=== PATIENT | female | born 1975 | race African-American/Black ===

== ENCOUNTER 2016-05-25 18:23 | Outpatient (CLI) | payer MEDICAID ==
[2016-05-25 19:09] LABS: APPEARANCE,URINE CLOUDY; BILIRUBIN,URINE NEGATIVE (NEGATIVE); GLUCOSE, URINE NEGATIVE (NEGATIVE); KETONES,URINE TRACE mg/dL (NEGATIVE); LEUKOCYTE ESTERASE,URINE NEGATIVE (NEGATIVE); NITRITE,URINE NEGATIVE (NEGATIVE); PROTEIN,URINE NEGATIVE (NEGATIVE); URINE SPECIFIC GRAVITY 1.014; UROBILINOGEN,URINE NEGATIVE mg/dL (<2.0)
[2016-05-25 19:36] LABS: URINE BARBITURATES SCREEN NEGATIVE; URINE METHADONE SCREEN NEGATIVE; URINE PHENCYCLIDINE SCREEN NEGATIVE
--- NOTE | 2016-05-25 20:01 | L&D Flow Sheet ---
LD Flowsheet Datetime Report Generated by CPN: 05/25/2016 20:00 Datetime: 05/25/2016 19:56 NBP Sys/Leigha/Mean (mmHg): 136 (QS system process) : 73 (QS system process) : 98 (QS system process) Pulse: 95 (QS system process) Communication LaborFlag: Antepartum (QS system process) Datetime: 05/25/2016 19:26 NBP Sys/Leigha/Mean (mmHg): 142 (QS system process) : 81 (QS system process) : 104 (QS system process) Pulse: 102 (QS system process) Respirations: 14 (Elayne Ledgerwood, RN) Communication LaborFlag: Antepartum (QS system process) Datetime: 05/25/2016 19:20 Pain Pain Scale: 0 (Elayne Ledgerwood, RN) Vaginal Exam Vaginal Bleeding: None (Elayne Ledgerwood, RN) Maternal Assessment Level of Consciousness: Fully Conscious (Elayne Ledgerwood, RN) DTR's/Clonus: DTRs 2+; No Clonus (Elayne Ledgerwood, RN) Headache: Denies (Elayne Ledgerwood, RN) Breath Sounds, Left: Clear and Equal (Elayne Ledgerwood, RN) Breath Sounds, Right: Clear and Equal (Elayne Ledgerwood, RN) Nausea/Vomiting: Denies (Elayne Ledgerwood, RN) RUQ Epigastric Pain: Denies (Elayne Ledgerwood, RN) Teaching Instructional Method: Demo; Verbal; Patient Instructed (Elayne Lopez RN) Plan of Care: Plan of Care Discussed (Elayne Lopez RN) Unit Routine: [place] to Room; Call Cardona; Bed; Handwashing; Monitoring; Safety/Fall Risk Prevention; Bathroom Privileges (Elayne Lopez RN) Communication LaborFlag: Antepartum (QS system process) Datetime: 05/25/2016 18:56 NBP Sys/Leigha/Mean (mmHg): 128 (QS system process) : 77 (QS system process) : 97 (QS system process) Pulse: 100 (QS system process) Communication LaborFlag: Antepartum (QS system process) Datetime: 05/25/2016 18:50 Vital Signs Stage of : Antepartum (Elayne Ledgerwood, RN)
--- NOTE | 2016-05-26 04:47 | L&D General Admission ---
General Admit Datetime Report Generated by CPN: 05/26/2016 04:45 INFORMATION Patient Age: 41 (05/25/2016 18:23:QS system process) EDC: 08/29/2016 00:00 (05/25/2016 18:44:JUDITH Becerra) : 5 (05/25/2016 18:44:JUDITH Becerra) Para: 2 (05/25/2016 20:39:Elayne Lopez RN) Para: 2 (05/25/2016 18:44:JUDITH Becerra) Term: 2 (05/25/2016 18:44:JUDITH Becerra) : 0 (05/25/2016 18:44:JUDITH Becerra) Spontaneous Abortions: 1 (05/25/2016 18:44:JUDITH Becerra) Induced Abortions: 1 (05/25/2016 18:44:JUDITH Becerra) Livin (05/25/2016 18:44:JUDITH Becerra) Cesareans: 0 (05/25/2016 18:44:JUDITH Becerra) VBACs: 0 (05/25/2016 18:44:[facility], [facility]) Ectopic: 0 (05/25/2016 18:44:[facility], [facility]) Multiple Births: 0 (05/25/2016 18:44:[facility], [facility]) Baby, Number in Womb: 1 (05/25/2016 20:39:Elayne Lopez RN) Baby, Number in Womb: 1 (05/25/2016 18:44:[facility]) CARE Primary Supply Chain Tech: [facility] (05/25/2016 18:44:[facility], [facility]) Adequate Care: Yes (05/25/2016 18:44:[facility], [facility]) Prepregnancy Weight (lb): 264 (05/25/2016 18:44:[facility]) Prepregnancy Weight (kg): 120.0 (05/25/2016 18:44:QS system process) Height (in): 68 (05/25/2016 18:50:QS system process) ALLERGIES Medication Allergy: No (05/25/2016 18:44:Keshia Camp, RNC) Medication Allergies: No Known Allergies (05/25/2016) (05/25/2016 18:44:QS system process) Latex Allergy: No Latex Allergies (05/25/2016 18:44:Keshia Camp, RNC) COMMUNICATION Primary Language: Sami (05/25/2016 18:44:Keshia Camp, RNC) Medical Tx Preferred Language: Sami (05/25/2016 18:44:Keshia Camp, RNC) Communication Barrier(s): None (05/25/2016 18:44:Keshia Camp, RNC) DEMOGRAPHICS Address: [address] [place] [id number] (05/25/2016 18:23:QS system process) Zipcode: [address] (05/25/2016 18:23:QS system process) Home (05/25/2016 18:23:QS system process) Work (05/25/2016 18:23:QS system process) SSN: [id number] (05/25/2016 18:23:QS system process) Next of Kin Name: SUDHAKAR HANSEN (05/25/2016 18:23:QS system process) Next of Kin (05/25/2016 18:23:QS system process) Next of Kin Relationship: SPO (05/25/2016 18:23:QS system process) Date of : 1975 (05/25/2016 18:23:QS system process) Marital Status: (05/25/2016 18:23:QS system process) Sex: Female (05/25/2016 18:23:QS system process) Race: (05/25/2016 18:23:QS system process) Ethnicity: Non- or (05/25/2016 18:23:QS system process) Restorationist: Other (05/25/2016 18:23:QS system process) DRUG AND ALCOHOL USE Alcohol: No (05/25/2016 18:44:Elayne Lopez RN) Cigarettes: Never Smoker. [id number] (05/25/2016 18:44:Elayne Lopez RN) Marijuana: No (05/25/2016 18:44:Elayne Lopez RN) Cocaine: No (05/25/2016 18:44:Elayne Lopez RN) Other Illicit Drugs: No (05/25/2016 18:44:Elayne Lopez RN) VACCINE HISTORY Influenza Vaccine: No (05/25/2016 18:44:Elayne Lopez RN) Feeding Preference: Breast (05/25/2016 18:44:Elayne Lopez RN) Plans for Labor and Delivery: Other, Specify (05/25/2016 18:44:Elayne Lopez RN) Other Labor and Delivery Plans: Delivery at [place] (05/25/2016 18:44:Elayne Lopez RN) Support Person: Sudhakar (05/25/2016 18:44:Elayne Lopez RN) Support Person Relationship: (05/25/2016 18:44:Elayne Lopez RN) Cultural/Spritual Practice: No (05/25/2016 18:44:Elayne Lopez RN) Spir/Cult Dietary Needs: No (05/25/2016 18:44:Elayne Lopez RN) LIVING SITUATION/DISCHARGE PLAN Living Arrangements: House (05/25/2016 18:44:Elayne Lopez RN) Adequate Access to:: Electric; Heat; Refrigeration; Plumbing/Running water; Phone; Transportation (05/25/2016 18:44:Elayne Lopez RN) WIC Program: Yes (05/25/2016 18:44:Elayne Lopez RN) Currently Using Commun Resources: Yes (05/25/2016 18:44:Elayne Lopez RN) Specify Current Resource Used: WIC (05/25/2016 18:44:Elayne Lopez RN) Outside Agency/Terminal Block Assembler: Yes (05/25/2016 18:44:Elayne Lopez RN) Specify Agency/ Terminal Block Assembler: ambulatory care coordinator from [facility] (05/25/2016 18:44:Elayne Lopez RN) Adoption Requested: No (05/25/2016 18:44:Elayne Lopez RN) Pt Contact w/ Post : N/A (05/25/2016 18:44:Elayne Lopez RN) LABS Blood Type: A Positive (05/25/2016 18:44:JUDITH Becerra) Antibody Screen: negative (05/25/2016 18:44:JUDITH Becerra) Gonorrhea: Negative (05/25/2016 18:44:JUDITH Becerra) Chlamydia: Negative (05/25/2016 18:44:JUDITH Becerra) RPR/VDRL: Nonreactive (05/25/2016 18:44:JUDITH Becerra) HIV Results: negative (05/25/2016 18:44:JUDITH Becerra) Hepatitis B: Negative (05/25/2016 18:44:JUDITH Becerra) Rubella: Immune (05/25/2016 18:44:Keshia Agee [facility]) OB/PREVIOUS HISTORY Previous Procedures: NST (05/25/2016 18:44:Elayne Lopez RN) Current Procedures: Ultrasound; NST (05/25/2016 18:44:Elayne Lopez RN) History of Previous : No (05/25/2016 18:44:Elayne Lopez RN) History of Gestational Diabetes: No (05/25/2016 18:44:Elayne Lopez RN) History of PIH: No (05/25/2016 18:44:Elayne Lopez RN) History of Incompetent Cervix: No (05/25/2016 18:44:Elayne Lopez RN) History of Placenta Previa/Abrup: No (05/25/2016 18:44:Elayne Lopez RN) History of Macrosomia: No (05/25/2016 18:44:Elayne Lopez RN) History of IUGR: No (05/25/2016 18:44:Elayne Lopez RN) History of Hemorrhage: No (05/25/2016 18:44:Elayne Lopez RN) History of Loss/Stillborn: No (05/25/2016 18:44:Elayne Lopez RN) History of : No (05/25/2016 18:44:Elayne Lopez RN) History of D (Rh) Sensitization: No (05/25/2016 18:44:Elayne Lopez RN) History Recurrent Loss/Stillborn: No (05/25/2016 18:44:Elayne Lopez RN) History Depression/PP Depression: No (05/25/2016 18:44:Elayne Lopez RN) History of Uterine Anomaly/SWAPNA: No (05/25/2016 18:44:Elayne Lopez RN) History of Infertility: No (05/25/2016 18:44:Elayne Lopez RN) History of ART Treatment: No (05/25/2016 18:44:Elayne Lopez RN) History of SWAPNA: No (05/25/2016 18:44:Elayne Lopez RN) Comments Obstetrical History: present- baby has TOF (05/25/2016 18:44:Elayne Lopez RN) MEDICAL HISTORY Med Hx Diabetes: No (05/25/2016 18:44:Elayne Lopez RN) Med Hx Hypertension: Yes (05/25/2016 18:44:Elayne Lopez RN) Med Hx Heart Disease: No (05/25/2016 18:44:Elayne Lopez RN) Med Hx Autoimmune Disorder: No (05/25/2016 18:44:Elayne Lopez RN) Med Hx Kidney Disease/UTI: No (05/25/2016 18:44:Elayne Lopez RN) Med Hx Neurologic/Epilepsy: No (05/25/2016 18:44:Elayne Lopez RN) Med Hx Psychiatric Disorders: No (05/25/2016 18:44:Elayne Lopez RN) Med Hx Hepatitis/Liver Disease: No (05/25/2016 18:44:Elayne Lopez RN) Med Hx Varicosities/Phlebitis: No (05/25/2016 18:44:Elayne Lopez RN) Med Hx Thyroid Dysfunction: No (05/25/2016 18:44:Elayne Lopez RN) Med Hx Trauma/Violence: No (05/25/2016 18:44:Elayne Lopez RN) Med Hx Blood Transfusion: No (05/25/2016 18:44:Elayne Lopez RN) Med Hx Pulmonary (Asthma,TB): No (05/25/2016 18:44:Elayne Lopez RN) Med Hx Breast: No (05/25/2016 18:44:Elayne Lopez RN) Med Hx PROCESSING ASSOCIATE Surgery: No (05/25/2016 18:44:Elayne Lopez RN) Med Hx Hospitalization/Surgery: No (05/25/2016 18:44:Elayne Lopez RN) Med Hx Anesthetic Complications: No (05/25/2016 18:44:Elayne Lopez RN) Med Hx Abnormal Pap Smear: No (05/25/2016 18:44:Elayne Lopez RN) Other Medical Diseases: No (05/25/2016 18:44:Elayne Lopez RN) Med Hx Significant Family Hx: No (05/25/2016 18:44:Elayne Lopez RN) INFECTIOUS HISTORY Inf Hx Gonorrhea: No (05/25/2016 18:44:Elayne Lopez RN) Inf Hx Chlamydia: No (05/25/2016 18:44:Elayne Lopez RN) Inf Hx Syphilis: No (05/25/2016 18:44:Elayne Lopez RN) Inf Hx HIV/AIDS: No (05/25/2016 18:44:Elayne Lopez RN) Inf Hx Human Papilloma Virus: No (05/25/2016 18:44:Elayne Lopez RN) Inf Hx Pt/Partner Genital Herpes: No (05/25/2016 18:44:Elayne Lopez RN) Inf Hx Tuberculosis/Exposure: No (05/25/2016 18:44:Elayne Lopez RN) Inf Hx Hepatitis B,C: No (05/25/2016 18:44:Elayne Lopez RN) Inf Hx Rash or Viral Illness: No (05/25/2016 18:44:Elayne Lopez RN) GENETIC HISTORY Gen Hx Age >=35 at MAKAYLA: No (05/25/2016 18:44:Elayne Lopez RN) Gen Hx Thalassemia: No (05/25/2016 18:44:Elayne Lopez RN) Gen Hx Congenital Heart Defect: No (05/25/2016 18:44:Elayne Lopez RN) Gen Hx Neural Tube Defect: No (05/25/2016 18:44:Elanye Lopez RN) Gen Hx Down's Syndrome: No (05/25/2016 18:44:Elayne Lopez RN) Gen Hx Eriberto-Sachs: No (05/25/2016 18:44:Elayne Lopez RN) Gen Hx Mick: No (05/25/2016 18:44:Elayne Lopez RN) Gen Hx Familial Dysautonomia: No (05/25/2016 18:44:Elayne Lopez RN) Gen Hx Sickle Cell Disease/Trait: No (05/25/2016 18:44:Elayne Lopez RN) Gen Hx Hemophilia/Blood Disorder: No (05/25/2016 18:44:Elayne Lopez RN) Gen Hx Muscular Dystrophy: No (05/25/2016 18:44:Elayne Lopez RN) Gen Hx Cystic Fibrosis: No (05/25/2016 18:44:Elayne Lopez RN) Gen Hx Huntingtons Chorea: No (05/25/2016 18:44:Elayne Lopez RN) Gen Hx Mental Retardation/Autism: No (05/25/2016 18:44:Elayne Lopez RN) Gen Hx Tested for Fragile X: No (05/25/2016 18:44:Elayne Lopez RN) Gen Hx Other Inher/Chromosomal: No (05/25/2016 18:44:Elayne Lopez RN) Gen Hx Maternal Metabolic DO: No (05/25/2016 18:44:Elayne Lopez RN) Gen Hx Pt Father or FOB Defect: No (05/25/2016 18:44:Elayne Lopez RN) Gen Hx Other Genetic History: No (05/25/2016 18:44:Elayne Lopez RN) Gen Hx Drugs/Meds since LMP: No (05/25/2016 18:44:Elayne Lopez RN)
--- NOTE | 2016-05-26 04:47 | L&D Current Admission ---
Current Admit Datetime Report Generated by CPN: 05/26/2016 04:45 ADMISSION INFORMATION Chief Complaint: abdominal pain (05/25/2016 19:20:Elayne Lopez RN)
--- NOTE | 2016-05-26 04:47 | Antepartum Discharge Summary ---
Antepartum DC Datetime Report Generated by CPN: 05/26/2016 04:45 DIET/ACTIVITY/RESTRICTIONS Diet: Regular (05/25/2016 20:39:Elayne Ledgerwood, RN) Activity: Normal Activity (05/25/2016 20:39:Elayne Ledgerwood, RN) TEACHING/INSTRUCTIONS/REFERRALS Instructions Given To: pt (05/25/2016 20:39:Elayne Ledgerwood, RN) Instructions Understood: Patient Verbalized Understanding; Support Person Verbalized Understanding (05/25/2016 20:39:Elayne Lopez RN) Referrals: None (05/25/2016 20:39:Elayne Lopez RN) Educational Materials- Other: Kick Count Round Ligament Pain (05/25/2016 20:39:Elayne Lopez RN) DISCHARGE INFORMATION Discharged AMA: No (05/25/2016 20:39:Elayne Lopez RN) Physician Notified of Disch AMA: Dr Lockett (05/25/2016 20:39:Elayne Lopez RN) Discharge Date/Time: 05/25/2016 20:32 (05/25/2016 20:39:Elayne Lopez RN) Discharged To: Home (05/25/2016 20:39:Elayne Lopez RN) Discharge Provider Name: Dr Lockett (05/25/2016 20:39:Elayne Lopez RN) Accompanied By: (05/25/2016 20:39:Elayne Lopez RN) Discharge Method: Ambulatory (05/25/2016 20:39:Elayne Lopez RN) Condition: Stable (05/25/2016 20:39:Elayne Lopez RN) FOLLOW UP INFORMATION Follow Up With: [facility] (05/25/2016 20:39:Elayne Lopez RN) Follow Up On: As Scheduled (05/25/2016 20:39:Elayne Lopez RN) Follow Up Phone Number: [facility] - (05/25/2016 20:39:Elayne Lopez RN)
--- NOTE | 2016-05-26 04:47 | L&D Flow Sheet ---
LD Flowsheet Datetime Report Generated by CPN: 05/26/2016 04:45 Datetime: 05/25/2016 20:30 Additional Nursing Comments: Pt is okay for discharge home. F/U as scheduled in office. Not in labor. (Suzy Lattibeaudeir, RN) Datetime: 05/25/2016 20:24 Patient Care Patient Care Comments: Monitors off (Elayne Lopez, RN) Datetime: 05/25/2016 20:22 Teaching Instructional Method: Demo; Verbal; Patient Instructed (Elaynechristy Pedersonwood, RN) Related: Hydration; Activity and Rest (Elayne Lopez, RN) Teaching Comments: Kick Counts, Round Ligament Pain (Elayne Lopez, RN) Datetime: 05/25/2016 20:11 Uterine Activity Monitor Mode: External; Palpation (Elayne Ledgerwood, RN) Frequency (min): none (Elayne Ledgerwood, RN) Contraction Comments: pt reports no feeling of contractions (Elayne Ledgerwood, RN) Assessment A Monitor Mode: External US (Elayne Ledgerwood, RN) FHR Baseline Rate : 140 (Elayne Ledgerwood, RN) FHR Baseline Changes: No Baseline Change (Elayne Ledgerwood, RN) Variability: Moderate 6-25 bpm (Elayne Ledgerwood, RN) Accelerations: 10X10 (Elayne Ledgerwood, RN) Decelerations: None (Elayne Ledgerwood, RN) Patient Care Patient Care Comments: Monitors off (Elayne Ledgerwood, RN) Datetime: 05/25/2016 19:56 NBP Sys/Leigha/Mean (mmHg): 136 (QS system process) : 73 (QS system process) : 98 (QS system process) Pulse: 95 (QS system process) LaborFlag: Antepartum (QS system process) Datetime: 05/25/2016 19:44 Communication Communication: Provider Orders Received (Elayne Bgabbie, RN) Communication Comments: Dr Lockett notified of pt's status, complaints, labs. D/C order received after obtaining 10 -15 minutes FHR strip. (Elayne Pedersonwood, RN) Datetime: 05/25/2016 19:26 NBP Sys/Leigha/Mean (mmHg): 142 (QS system process) : 81 (QS system process) : 104 (QS system process) Pulse: 102 (QS system process) Respirations: 14 (Elayne Lopez, RN) LaborFlag: Antepartum (QS system process) Datetime: 05/25/2016 19:20 Pain Pain Scale: 0 (Elayne Ledgerwood, RN) Vaginal Exam Vaginal Bleeding: None (Elayne Ledgerwood, RN) Maternal Assessment Level of Consciousness: Fully Conscious (Elayne Ledgerwood, RN) DTR's/Clonus: DTRs 2+; No Clonus (Elayne Ledgerwood, RN) Headache: Denies (Elayne Ledgerwood, RN) Breath Sounds, Left: Clear and Equal (Elayne Ledgerwood, RN) Breath Sounds, Right: Clear and Equal (Elayne Ledgerwood, RN) Nausea/Vomiting: Denies (Elayne Lopez RN) RUQ Epigastric Pain: Denies (Elayne Lopez RN) Teaching Instructional Method: Demo; Verbal; Patient Instructed (Elayne Lopez RN) Plan of Care: Plan of Care Discussed (Elayne Lopez RN) Unit Routine: [place] to Room; Call [place]ona; Bed; Handwashing; Monitoring; Safety/Fall Risk Prevention; Bathroom Privileges (Elayne Lopez RN) LaborFlag: Antepartum (QS system process) Datetime: 05/25/2016 19:10 Communication Comments: Report received from Charlotte Wilson RN (Elayne Lopez RN) Datetime: 05/25/2016 18:56 NBP Sys/Leigha/Mean (mmHg): 128 (QS system process) : 77 (QS system process) : 97 (QS system process) Pulse: 100 (QS system process) LaborFlag: Antepartum (QS system process) Datetime: 05/25/2016 18:50 Vital Signs Stage of : Antepartum ([facility], RN)
--- NOTE | 2016-05-26 04:47 | L&D Admission Assessment ---
LD ADM ASMT Datetime Report Generated by CPN: 05/26/2016 04:45 PATIENT ASSESSMENT Assessment Type: Admission Assessment (05/25/2016 19:20:Elayne Lopez, RN) WEIGHT Weight (lb): 286 (05/25/2016 18:50:QS system process) Weight (kg): 130.0 (05/25/2016 18:50:QS system process) Total Wt Gain (lb): 22 (05/25/2016 18:50:QS system process) Wt Gain (kg): 10.0 (05/25/2016 18:50:QS system process) PAIN Pain Scale: 0 (05/25/2016 19:20:Elayne Ledgerwood, RN) CONTRACTIONS Frequency (min): none (05/25/2016 20:11:Elayne Ledgerwood, RN) Contraction Comments: pt reports no feeling of contractions (05/25/2016 20:11:Elayne Ledgerwood, RN) NEURO Level of Consciousness: Fully Conscious (05/25/2016 19:20:Elayne Ledgerwood, RN) DTR's/Clonus: DTRs 2+; No Clonus (05/25/2016 19:20:Elayne Lopez RN) Headache: Denies (05/25/2016 19:20:Elayne Lopez RN) Dizziness: No (05/25/2016 19:20:Elayne Lopez RN) Blurred Vision: No (05/25/2016 19:20:Elayne Lopez RN) Extremity Numbness/Tingling : None (05/25/2016 19:20:Elayne Lopez RN) Extremity Movement: Full Range of Motion (05/25/2016 19:20:Elayne Lopez RN) CARDIOVASCULAR Nailbeds: [place] (05/25/2016 19:20:Elayne Lopez RN) Capillary Refill: Less than 3 Seconds (05/25/2016 19:20:Elayne Lopez RN) Lower Extremities Edema Degree: 1+ (05/25/2016 19:20:Elayne Lopez RN) Upper Extremities Edema: None (05/25/2016 19:20:Elayne Lopez RN) Upper Extremities Edema Degree: None (05/25/2016 19:20:Elayne Lopez RN) Facial Edema: None (05/25/2016 19:20:Elayne Lopez RN) Zaria's Sign Left Leg: Negative (05/25/2016 19:20:Elayne Lopez RN) Zaria's Sign Right Leg: Negative (05/25/2016 19:20:Elayne Lopez RN) RESPIRATORY Respiratory Effort: Unlabored; Regular Rhythm; Equal Expansion (05/25/2016 19:20:Elaynechristy Lopez, RN) Breath Sounds, Left: Clear and Equal (05/25/2016 19:20:Elaynechristy Fountaingerwood, RN) Breath Sounds, Right: Clear and Equal (05/25/2016 19:20:Elaynechristy Fountaingerabbie, RN) Cough Productivity: None (05/25/2016 19:20:Elaynechristy Fountaingerwood, RN) GASTROINTESTINAL Nausea/Vomiting: Denies (05/25/2016 19:20:Elayne Lopez RN) Bowel Sounds: Normoactive; All Quadrants (05/25/2016 19:20:Elayne Lopez, LILIAN) RUQ Epigastric Pain: Denies (05/25/2016 19:20:Elayne Lopez RN) Bowel Patterns: Soft, Formed Stool (05/25/2016 19:20:Elayne Lopez RN) Hemorrhoids: None (05/25/2016 19:20:Elayne Lopez RN) Diet Type: Regular diet (05/25/2016 19:20:Elayne Lopez RN) Last Meal: 05/25/2016 15:00 (05/25/2016 19:20:Elayne Jessica, RN) GENITOURINARY Bladder: Nondistended (05/25/2016 19:20:Elayne Lopez RN) Frequency of Urination: No (05/25/2016 19:20:Elayne Lopez RN) Urination Burning: No (05/25/2016 19:20:Elayne Lopez RN) CVA Tenderness: No (05/25/2016 19:20:Elayne Lopez RN) Vaginal Bleeding: None (05/25/2016 19:20:Elayne Lopez, RN) Vaginal Discharge Amount: None (05/25/2016 19:20:Elayne Lopez RN) Vaginal Discharge Color: N/A (05/25/2016 19:20:Elayne Lopez, RN) INTEGUMENTARY Skin Color: Normal for Race (05/25/2016 19:20:Elayne Lopez RN) Skin Temperature: Warm (05/25/2016 19:20:Elayne Lopez RN) Skin Moisture: Dry (05/25/2016 19:20:Elayne Lopez RN) RUTHANN SKIN ASSESSMENT Ruthann Scale Sensory Perception: No Impairment- Responds to verbal commands. Has no sensory deficit which would limit ability to feel or voice pain or discomfort (05/25/2016 19:20:Elayne Lopez RN) Ruthann Scale Moisture: Rarely Moist- Skin is usually dry. Linen only requires changing at routine intervals (05/25/2016 19:20:Elayne Lopez RN) Ruthann Scale Activity: Walks Frequently- Walks outside the room at least twice a day and inside room at least every 2 hours during the day. (05/25/2016 19:20:Elayne Lopez RN) Ruthann Scale Mobility: No Limitations- Makes major and frequent changes in position without assistance (05/25/2016 19:20:Elayne Lopez RN) Ruthann Scale Nutrition: Excellent- Eats most of every meal. Never refuses a meal. Usually eats a total of 4 or more servings of meat and dairy products. Occasionally eats between meals. Does not require supplementation (05/25/2016 19:20:Elayne Lopez RN) Ruthann Scale Friction and Shear: No Apparent Problem- Moves in bed and in chair independently and has sufficient muscle strength to lift up completely during move. Maintains good position in bed or chair at all times (05/25/2016 19:20:Elayne Lopez RN) Ruthann Scale Total: 23 (05/25/2016 19:20:QS system process) Ruthann Scale Risk: No Risk of Pressure Ulcer Noted at this Time (05/25/2016 19:20:QS system process) SUPPORT Family Support: Significant Other supportive, at bedside frequently; Family supportive (05/25/2016 19:20:Elayne Ledgerwood, RN) Emotional State: Calm/Relaxed (05/25/2016 19:20:Elayne Ledgerwood, RN) SAFETY Call Cardona Within Reach: Yes (05/25/2016 19:20:Elayne Ledgerwood, RN) Side Rails Up: Yes (05/25/2016 19:20:Elayne Ledgerwood, RN) Bed Wheels Locked: Yes (05/25/2016 19:20:Elayne Ledgerwood, RN) Arm Bands Present: Yes (05/25/2016 19:20:Elayne Ledgerwood, RN) FALL SCREEN Fall Risk History of Falling: (0) No (05/25/2016 19:20:Elayne Lopez RN) Fall Risk Secondary Diagnosis: (0) No (05/25/2016 19:20:Elayne Lopez RN) Fall Risk Ambulatory Aid: (0) None/Bedrest/Wheelchair/Nurse Assist (05/25/2016 19:20:Elayne Lopez RN) Fall Risk IV Therapy: (0) No (05/25/2016 19:20:Elayne Lopez RN) Fall Risk Gait: (0) Normal/Bedrest/Immobile (05/25/2016 19:20:Elayne Lopez RN) Fall Risk Mental Status: (0) Oriented to Own Ability (05/25/2016 19:20:Elayne Lopez RN) Fall Risk Score: 0 (05/25/2016 19:20:QS system process) Fall Risk Score Definition: No Risk: No action required (05/25/2016 19:20:QS system process) RECENT TRAVEL/INFECTIOUS DISEASE Pt/Family Education: Handwashing Hygiene (05/25/2016 19:20:Elayne Lopez RN) BABY A FHR Baseline Rate (bpm) Baby A: 140 (05/25/2016 20:11:Elayne Lopez RN) Variability Baby A: Moderate 6-25 bpm (05/25/2016 20:11:Elayne Lopez RN) Accelerations Baby A: 10X10 (05/25/2016 20:11:Elayne Lopez RN) Decelerations Baby A: None (05/25/2016 20:11:Elayne Lopez RN) ADDITIONAL COMMENTS Assessment Flag: Admission Assessment (05/25/2016 19:20:QS system process)
--- NOTE | 2016-05-26 04:47 | L&D Discharge Summary ---
OB Discharge Summary Datetime Report Generated by CPN: 05/26/2016 04:45 DISCHARGE DIAGNOSIS Diagnosis/Symptoms: False Labor Gestation: 26.2 Number of Babies in Womb: 1 Parity: 2 DIET/ACTIVITY/RESTRICTIONS Diet: Regular Activity: Normal Activity TEACHING/INSTRUCTIONS/REFERRALS Instructions Given To: pt Instructions Understood: Patient Verbalized Understanding; Support Person Verbalized Understanding Referrals: None Educational Materials- Other: Kick Count Round Ligament Pain DISCHARGE INFORMATION Discharged AMA: No Physician Notified of Disch AMA: Dr Lockett Discharge Date/Time: 05/25/2016 20:32 Discharged To: Home Discharge Provider Name: Dr Lockett Accompanied By: Discharge Method: Ambulatory Condition: Stable FOLLOW UP INFORMATION Follow Up With: [facility] Follow Up On: As Scheduled Follow Up Phone Number: [facility] -
== END 2016-05-25 20:32 | disposition home or self-care (01) ==
LOC: LC 18:23
PROVIDERS: ATTEND Obstetrics & Gynecology
PROC: 4A1HXCZ Monitoring of Products of Conception, Cardiac Rate, External Approach (ICD-10-PCS; principal; 2016-05-25)
DX: Z34.92 Encounter for supervision of normal pregnancy, unspecified, second trimester (principal); Z3A.26 26 weeks gestation of pregnancy
CPT/HCPCS: 80307; 81001

== ENCOUNTER 2016-07-07 12:00 | Outpatient (CLI) | payer MEDICAID ==
--- NOTE | 2016-07-07 14:01 | L&D Flow Sheet ---
LD Flowsheet Datetime Report Generated by CPN: 07/07/2016 14:00 Datetime: 07/07/2016 13:10 Patient Care Patient Position/Activity: Left Lateral (Sammie Wilson, RNC) I/O Interventions: Popsicle (Sammie Wilson, RNC) Datetime: 07/07/2016 12:39 Vital Signs NBP Sys/Leigha/Mean (mmHg): 133 (QS system process) : 78 (QS system process) : 93 (QS system process) Pulse: 93 (QS system process) Communication LaborFlag: Antepartum (QS system process)
--- NOTE | 2016-07-07 14:27 | Non Stress Test Report ---
Non Stress Test Datetime Report Generated by CPN: 07/07/2016 14:27 DEMOGRAPHIC EGA NST: 32.3 INDICATION Indication for Study: Ordered by Provider MONITORING Time on Monitor: 07/07/2016 12:38 Time off Monitor: 07/07/2016 13:50 NST Duration: 72 NST INTERVENTIONS NST Interventions: PO Hydration Physician Notified NST: A Emmel CNM BABY A: [id number] BABY A Movement : Present Contraction Frequency : x0 FHR Baseline : 130 Accelerations : 15X15 Decelerations : None Variability : Moderate 6-25bpm NST Review: Meets Criteria for Reactive NST NST Review and Verified By : Ramon Gonzalez RN NST Results: Reactive NST REPORT Report Trigger: Send Report
== END 2016-07-07 13:50 | disposition home or self-care (01) ==
LOC: LC 12:00
PROVIDERS: ATTEND Student in an Organized Health Care Education/Training Program
PROC: 4A1HXCZ Monitoring of Products of Conception, Cardiac Rate, External Approach (ICD-10-PCS; principal; 2016-07-07)
DX: O09.523 Supervision of elderly multigravida, third trimester (principal); Z3A.32 32 weeks gestation of pregnancy
CPT/HCPCS: 59025

== ENCOUNTER 2016-07-13 09:57 | Outpatient (CLI) | payer MEDICAID ==
[2016-07-13] MEDS ORDERED: MISOPROSTOL 0.1 MG TABLET PO ONE (10:16)
== END 2016-07-13 11:11 | disposition home or self-care (01) ==
LOC: LC 09:57
PROVIDERS: ATTEND Obstetrics & Gynecology
PROC: 4A1HXCZ Monitoring of Products of Conception, Cardiac Rate, External Approach (ICD-10-PCS; principal; 2016-07-13)
DX: O09.523 Supervision of elderly multigravida, third trimester (principal); Z3A.32 32 weeks gestation of pregnancy
CPT/HCPCS: 59025

== ENCOUNTER 2016-07-20 10:11 | Outpatient (CLI) | payer MEDICAID ==
--- NOTE | 2016-07-20 10:16 | Non Stress Test Report ---
Non Stress Test Datetime Report Generated by CPN: 07/20/2016 10:16 DEMOGRAPHIC EGA NST: 33.2 INDICATION Indication for Study: Chronic Hypertension; Other Indication for Study: Ordered by Provider; Other Indication for Study (NST) Other: AMA, Tetraology of Fallot MONITORING Monitor Explained: Monitor Explained; Test Explained; Patient Verbalized Understanding Time on Monitor: 07/13/2016 10:24 Time off Monitor: 07/13/2016 11:07 NST Duration: 43 NST INTERVENTIONS NST Interventions: PO Hydration NST Interventions: PO Hydration; Reposition Patient Physician Notified NST: ANDERSON BABY A Movement : Present Contraction Frequency : none FHR Baseline : 125 Accelerations : 15X15 Decelerations : None Variability : Moderate 6-25bpm NST Review: Meets Criteria for Reactive NST NST Review and Verified By : Alexa Cooper RN NST Results: Reactive NST REPORT Report Trigger: Send Report
== END 2016-07-20 10:55 | disposition home or self-care (01) ==
LOC: LC 10:11
PROVIDERS: ATTEND Obstetrics & Gynecology
PROC: 4A1HXCZ Monitoring of Products of Conception, Cardiac Rate, External Approach (ICD-10-PCS; principal; 2016-07-20)
DX: O10.913 Unspecified pre-existing hypertension complicating pregnancy, third trimester (principal); O09.523 Supervision of elderly multigravida, third trimester; Q21.3 Tetralogy of Fallot; Z3A.33 33 weeks gestation of pregnancy
CPT/HCPCS: 59025

== ENCOUNTER 2016-08-10 10:13 | Outpatient (CLI) | payer MEDICAID ==
[2016-08-10 13:19] LABS: ABSOLUTE EOSINOPHILS # (AUTO) 0.1 10^3/uL (0.0-0.6); ABSOLUTE LYMPHOCYTES (AUTO) 1.6 10^3/uL (0.5-4.7); ABSOLUTE MONOCYTES (AUTO) 0.7 10^3/uL (0.1-1.4); ABSOLUTE NEUT (AUTO) 7.4 10^3/uL (1.7-8.2); BASOPHILS % (AUTO) 0.4 % (0-2); EOSINOPHILS % (AUTO) 0.8 % (0-6); HEMATOCRIT 33.6 % (36.0-47.0); HEMOGLOBIN 11.2 g/dL (12.0-15.5); LYMPHOCYTES % (AUTO) 16.1 % (13-45); MEAN CORPUSCULAR HEMOGLOBIN 28.5 pg (27.0-33.4); MEAN CORPUSCULAR HGB CONC 33.3 g/dL (32.0-36.0); MEAN CORPUSCULAR VOLUME 86 fl (80-97); MONOCYTES % (AUTO) 7.3 % (3-13); RED BLOOD COUNT 3.92 10^6/uL (3.72-5.28); SEGMENTED NEUTROPHILS % (AUTO) 75.4 % (42-78); WHITE BLOOD COUNT 9.8 10^3/uL (4.0-10.5)
[2016-08-10 13:37] LABS: ALANINE AMINOTRANSFERASE 25 U/L (9-52); ALBUMIN 3.8 g/dL (3.5-5.0); ALKALINE PHOSPHATASE 117 U/L (38-126); ANION GAP 14 (5-19); ASPARTATE AMINO TRANSFERASE 20 U/L (14-36); BILIRUBIN,DIRECT 0.3 mg/dL (0.0-0.4); BILIRUBIN,TOTAL 0.4 mg/dL (0.2-1.3); BLOOD UREA NITROGEN 7 mg/dL (7-20); CALCIUM 9.9 mg/dL (8.4-10.2); CARBON DIOXIDE 22 mmol/L (22-30); CHLORIDE 105 mmol/L (98-107); CREATININE RESULT 0.52 mg/dL (0.52-1.25); GLUCOSE 84 mg/dL (75-110); LDH 488 U/L (313-618); POTASSIUM 4.4 mmol/L (3.6-5.0); SODIUM 140.5 mmol/L (137-145); TOTAL PROTEIN 7.1 g/dL (6.3-8.2); URIC ACID 3.8 mg/dL (2.5-7.0)
[2016-08-10] MEDS ORDERED: LABETALOL HCL 200 MG TABLET ONE (14:04)
== END 2016-08-10 13:40 | disposition home or self-care (01) ==
LOC: LC 10:13
PROVIDERS: ATTEND Obstetrics & Gynecology
PROC: 4A1HXCZ Monitoring of Products of Conception, Cardiac Rate, External Approach (ICD-10-PCS; principal; 2016-08-10)
DX: O09.523 Supervision of elderly multigravida, third trimester (principal); Z3A.37 37 weeks gestation of pregnancy
CPT/HCPCS: 59025; 36415; 83615; 84550; 85025; 80053; 76819; J3490

== ENCOUNTER → 2018-07-25 | Outpatient (CLI) | payer BC ==
[2018-07-25 16:05] LABS: APPEARANCE,URINE CLOUDY; BILIRUBIN,URINE NEGATIVE (NEGATIVE); COLOR,URINE YELLOW; GLUCOSE, URINE NEGATIVE (NEGATIVE); KETONES,URINE NEGATIVE (NEGATIVE); LEUKOCYTE ESTERASE,URINE LARGE (NEGATIVE); NITRITE,URINE NEGATIVE (NEGATIVE); PROTEIN,URINE NEGATIVE (NEGATIVE); URINE SPECIFIC GRAVITY 1.021; UROBILINOGEN,URINE NEGATIVE mg/dL (<2.0)
[2018-07-25 16:26] LABS: ALANINE AMINOTRANSFERASE 27 U/L (9-52); ALBUMIN 4.5 g/dL (3.5-5.0); ALKALINE PHOSPHATASE 108 U/L (38-126); ANION GAP 9 (5-19); ASPARTATE AMINO TRANSFERASE 20 U/L (14-36); BILIRUBIN,DIRECT 0.2 mg/dL (0.0-0.4); BILIRUBIN,TOTAL 0.5 mg/dL (0.2-1.3); BLOOD UREA NITROGEN 13 mg/dL (7-20); CALCIUM 9.3 mg/dL (8.4-10.2); CARBON DIOXIDE 26 mmol/L (22-30); CHLORIDE 104 mmol/L (98-107); CHOLESTEROL 172.27 mg/dL (0-200); GLUCOSE 84 mg/dL (75-110); POTASSIUM 4.2 mmol/L (3.6-5.0); SODIUM 138.7 mmol/L (137-145); TRIGLYCERIDES 55 mg/dL (<150)
[2018-07-25 16:37] LABS: DIRECT LDL 120 mg/dL (<100)
== END ==
LOC: OD 14:56
PROVIDERS: ATTEND Family Medicine
DX: Z13.1 Encounter for screening for diabetes mellitus (principal); I10 Essential (primary) hypertension; Z13.220 Encounter for screening for lipoid disorders
CPT/HCPCS: 36415; 80053; 80061; 81001

== ENCOUNTER → 2018-08-26 | Outpatient (CLI) | payer BC ==
[2018-08-26 15:15] LABS: APPEARANCE,URINE SLIGHTLY-CLOUDY; BILIRUBIN,URINE NEGATIVE (NEGATIVE); COLOR,URINE YELLOW; GLUCOSE, URINE NEGATIVE (NEGATIVE); KETONES,URINE NEGATIVE (NEGATIVE); LEUKOCYTE ESTERASE,URINE LARGE (NEGATIVE); NITRITE,URINE NEGATIVE (NEGATIVE); PROTEIN,URINE NEGATIVE (NEGATIVE); URINE SPECIFIC GRAVITY 1.018; UROBILINOGEN,URINE NEGATIVE mg/dL (<2.0)
== END ==
LOC: OD 14:06
PROVIDERS: ATTEND Family Medicine
DX: R31.21 Asymptomatic microscopic hematuria (principal)
CPT/HCPCS: 81001

== ENCOUNTER → 2018-09-12 | Outpatient (CLI) | payer BC ==
[~2018-09-12] MED LIST: FUROSEMIDE INJ/PF 40 MG/4 ML SDV ONE
--- NOTE | 2018-09-12 15:33 | RADIOLOGY REPORT (SQ) ---
EXAM DESCRIPTION: NM RENAL WITH LASIX COMPLETED DATE/TIME: 09/12/2018 3:19 pm REASON FOR STUDY: ASYMPTOMATIC MICROSCOPIC HEMOTURIA R31.21 ASYMPTOMATIC MICROSCOPIC HEMATURIA COMPARISON: Bilateral renal ultrasound 09/12/2018 RADIONUCLIDE AND DOSE: 5.2 millicuries Tc-99m MAG 3 The route of agent administration: Intravenous ADDITIONAL DRUGS AND DOSES: Lasix 20 mg. TECHNIQUE: Following administration of the radionuclide, flow images of the kidneys were acquired fo llowed by sequential imaging for 31 minutes. Intravenous Lasix was given at the midpoint of the study . Time activity curves were generated. LIMITATIONS: None. FINDINGS: ACTIVITY LEFT KIDNEY: 59 %. ACTIVITY RIGHT KIDNEY: 41 %. There is prompt uptake of activity in the kidneys bilaterally simultaneous with passage of the aortic bolus. There is normal excretion with progression of activity from the renal cortex into the collecting syst em and subsequently into the ureters. Time activity curves demonstrate normal excretory pattern with no abnormal retention. No obstructive changes. IMPRESSION: NORMAL LASIX RENOGRAM. TECHNICAL DOCUMENTATION: JOB ID: [id number] [employer]- All Rights Reserved Reading location - IP/workstation name: [email or web address]
--- NOTE | 2018-09-12 16:02 | RADIOLOGY REPORT (SQ) ---
EXAM DESCRIPTION: U/S RETROPERITON (RENAL/AORTA) COMPLETED DATE/TIME: 09/12/2018 3:12 pm REASON FOR STUDY: ASYMPTOMATIC MICROSCOPIC HEMOTURIA R31.21 ASYMPTOMATIC MICROSCOPIC HEMATURIA COMPARISON: Lasix renal scan 09/12/2018 TECHNIQUE: Dynamic and static grayscale images acquired of the kidneys and bladder and recorded on P ACS. Additional selected color Doppler and spectral images recorded. LIMITATIONS: None. FINDINGS: RIGHT KIDNEY: Normal size, 12 cm in length. Normal echogenicity. No solid or suspicious ma sses. Right midpole renal cortical 3 cm cyst. No hydronephrosis. No calcifications. LEFT KIDNEY: Normal size, 11.7 cm in length. Normal echogenicity. No solid or suspicious masses. No hydronephrosis. No calcifications. BLADDER: No masses. Right ureteral jet visualized. OTHER FINDINGS: No other significant finding. IMPRESSION: Benign 3 cm right midpole renal cortical cyst. Otherwise unremarkable bilateral renal a nd bladder ultrasound TECHNICAL DOCUMENTATION: JOB ID: [id number] [employer]- All Rights Reserved Reading location - IP/workstation name: [email or web address]
== END ==
LOC: RAD 13:57
PROVIDERS: ATTEND Family Medicine
DX: R31.21 Asymptomatic microscopic hematuria (principal)
CPT/HCPCS: 76770; 78708; A9562; J1940